=== PATIENT | female | born 1985 | race Caucasian/White ===

== ENCOUNTER 2016-06-21 21:48 | Emergency (ER) | payer OTHER ==
[~2016-06-21] VITALS: Ht 172.7 cm; Wt 218.0 kg
[~2016-06-21 21:48] MED LIST: ADVAIR 250-501 EACH IH; AURALGAN14.8 ML RIGHT EAR; CIPRO HC OTIC S10 ML RIGHT EAR; KEFLEX500 MG PO; MEDROXYPROGESTERONE; PEN-VEE K,VEET500 MG PO; PROAIR HFA8.5 GM IH; PULMICORT180 MICROG IH; ULTRAM50 MG PO; VENTOLIN17 GM IH
[2016-06-21] MEDS ORDERED: LOSARTAN POTASS50 MG PO (22:14)
[2016-06-21] MEDS ORDERED: TAMIFLU75 MG PO (22:59)
[2016-06-21] MEDS ORDERED: PREDNISONE20 MG PO (22:59)
[2016-06-21] MEDS ORDERED: TESSALON PERLE100 MG PO (22:59)
[2016-06-21 23:06] VITALS: BP 197/89
[2016-06-21 23:11] LABS: INFLUENZA B VIRAL ANTIGEN NEGATIVE
[2016-06-21 23:35] LABS: INFLUENZA A VIRAL ANTIGEN POSITIVE
== END 2016-06-21 23:06 | disposition home or self-care (01) ==
LOC: EME 21:48
PROVIDERS: Physician Assistant
DX: R05 Cough (principal); R51 Headache; R07.81 Pleurodynia; J02.9 Acute pharyngitis, unspecified; R06.02 Shortness of breath; J45.909 Unspecified asthma, uncomplicated; I10 Essential (primary) hypertension; R00.0 Tachycardia, unspecified; E66.01 Morbid (severe) obesity due to excess calories; Z68.45 Body mass index [BMI] 70 or greater, adult; Z87.891 Personal history of nicotine dependence
CPT/HCPCS: 87502; 99281; 99284; J7512

== ENCOUNTER 2016-06-26 22:34 | Emergency (ER) | payer OTHER ==
[~2016-06-26] VITALS: Ht 172.7 cm; Wt 220.4 kg
[~2016-06-26 22:34] MED LIST changes: +LOSARTAN POTASS50 MG PO; +PREDNISONE20 MG PO; +TAMIFLU75 MG PO; +TESSALON PERLE100 MG PO
[2016-06-27] MEDS ORDERED: HYCODAN SYRUP480 ML PO (00:14)
[2016-06-27] MEDS ORDERED: PREDNISONE10 MG PO (00:14)
[2016-06-27 00:58] VITALS: BP 179/83
== END 2016-06-27 01:05 | disposition home or self-care (01) ==
LOC: EME 22:34
DX: L50.9 Urticaria, unspecified (principal); T37.5X5A Adverse effect of antiviral drugs, initial encounter; T48.3X5A Adverse effect of antitussives, initial encounter
CPT/HCPCS: 99281; 99283; J3301

== ENCOUNTER 2016-07-20 17:00 | Emergency (ER) | payer OTHER ==
[~2016-07-20] VITALS: Ht 172.7 cm; Wt 220.4 kg
[~2016-07-20 17:00] MED LIST changes: +HYCODAN SYRUP480 ML PO; +PREDNISONE10 MG PO
[2016-07-20] MEDS ORDERED: PROAIR HFA8.5 GM IH (17:48)
[2016-07-20] MEDS ORDERED: PERCOCET 5/31 TABLET PO (19:32)
[2016-07-20 20:13] VITALS: BP 155/96
== END 2016-07-20 20:13 | disposition home or self-care (01) ==
LOC: EME 17:00
PROC: 2W38X1Z Immobilization of Right Upper Extremity using Splint (ICD-10-PCS; principal; 2016-07-20)
DX: S52.121A Displaced fracture of head of right radius, initial encounter for closed fracture (principal); S82.51XA Displaced fracture of medial malleolus of right tibia, initial encounter for closed fracture; W18.30XA Fall on same level, unspecified, initial encounter
CPT/HCPCS: 73080; 73610; 99281; 99284